=== PATIENT | male | born 1960 | race Hispanic/Latino ===

== ENCOUNTER 2022-08-28 13:30 | Emergency (ER) | payer OTHER ==
[~2022-08-28] VITALS: Ht 175.3 cm; Wt 108.9 kg
[2022-08-28 13:32] VITALS: BP 132/69
[2022-08-28] MEDS: IBUPROFEN 600 MG TABLET PO ONE (15:51)
[2022-08-28] MEDS ORDERED: IBUP-2070 PO (16:45)
[2022-08-28] MEDS ORDERED: CYCL5TAB PO (16:45)
== END 2022-08-28 16:57 | disposition home or self-care (01) ==
LOC: EDH 13:30
DX: M54.2 Cervicalgia (principal); M54.50 Low back pain, unspecified; V89.2XXA Person injured in unspecified motor-vehicle accident, traffic, initial encounter; Y93.89 Activity, other specified; Y92.89 Other specified places as the place of occurrence of the external cause; Y99.8 Other external cause status
CPT/HCPCS: 70450; 72125; 72131

== ENCOUNTER 2022-10-31 09:14 | Emergency (ER) | payer OTHER ==
[~2022-10-31] VITALS: Ht 175.3 cm; Wt 109.8 kg
[~2022-10-31 09:14] MED LIST: CYCL5TAB PO; IBUP-2070 PO
[2022-10-31] MEDS ORDERED: IBUPROFEN 600 MG TABLET PO ONE (09:30)
[2022-10-31] MEDS ORDERED: CYCL10TA16 PO (11:07)
[2022-10-31] MEDS ORDERED: IBUP-2070 PO (11:07)
[2022-10-31 11:38] VITALS: BP 114/48
== END 2022-10-31 11:38 | disposition home or self-care (01) ==
LOC: EDH 09:14
DX: M54.50 Low back pain, unspecified (principal); I10 Essential (primary) hypertension; E78.00 Pure hypercholesterolemia, unspecified; V89.2XXA Person injured in unspecified motor-vehicle accident, traffic, initial encounter; Y93.89 Activity, other specified; Y92.89 Other specified places as the place of occurrence of the external cause; Y99.8 Other external cause status
CPT/HCPCS: 72131

== ENCOUNTER → 2023-01-23 | Outpatient (CLI) | payer OTHER ==
[~2023-01-23] MED LIST changes: +CYCL10TA16 PO
== END | disposition home or self-care (01) ==
LOC: RAH 15:04
PROVIDERS: ATTEND Internal Medicine Cardiovascular Disease
DX: R01.1 Cardiac murmur, unspecified (principal)
CPT/HCPCS: 93306

== ENCOUNTER 2023-05-28 11:35 | Emergency (ER) | payer OTHER ==
[~2023-05-28] VITALS: Ht 175.3 cm; Wt 111.1 kg
[2023-05-28 11:48] VITALS: BP 139/64; PULSE 70; RESP 18
[2023-05-28] MEDS ORDERED: IBUPROFEN 800 MG TAB PO ONE (13:00)
[2023-05-28] MEDS ORDERED: IBUP-2077 PO (14:31)
[2023-05-28] MEDS ORDERED: CYCL5TAB PO (14:31)
== END 2023-05-28 14:59 | disposition home or self-care (01) ==
LOC: EDH 11:35
DX: S13.4XXA Sprain of ligaments of cervical spine, initial encounter (principal); M19.09 Primary osteoarthritis, other specified site; I10 Essential (primary) hypertension; V89.2XXA Person injured in unspecified motor-vehicle accident, traffic, initial encounter; Y93.89 Activity, other specified; Y92.89 Other specified places as the place of occurrence of the external cause; Y99.8 Other external cause status
CPT/HCPCS: 72040

== ENCOUNTER 2023-06-28 16:42 | Emergency (ER) | payer OTHER ==
[~2023-06-28] VITALS: Ht 175.3 cm; Wt 111.1 kg
[~2023-06-28 16:42] MED LIST changes: +IBUP-2077 PO
[2023-06-28 16:58] VITALS: BP 129/56; PULSE 80; RESP 16
[2023-06-28] MEDS ORDERED: KETOROLAC 30MG VIAL (30MG/ML) IM ONE (17:30)
[2023-06-28 17:41] LABS: BASOPHILS # (AUTO) 0.02 K/uL (0.00-0.20); BASOPHILS % (AUTO) 0.5 % (0.0-5.0); EOSINOPHILS # (AUTO) 0.03 K/uL (0.00-0.70); EOSINOPHILS % (AUTO) 0.7 % (0.0-8.0); IMMATURE GRANULOCYTE ABSOLUTE 0.03 K/uL (0-1); LYMPHOCYTES # (AUTO) 0.8 K/uL (1.0-4.8); LYMPHOCYTES % (AUTO) 17.8 % (21.0-51.0); MEAN CORPUSCULAR HGB CONC 31.1 g/dL (32.0-36.0); MEAN CORPUSCULAR VOLUME 77.1 fL (79-99); MONOCYTES # (AUTO) 0.9 K/uL (0.1-1.0); MONOCYTES % (AUTO) 21.5 % (3.0-13.0); NEUTROPHILS # (AUTO) 2.6 K/uL (1.8-7.7); NEUTROPHILS % (AUTO) 58.8 % (40.0-77.0); PLATELET COUNT (AUTO) 104 K/uL (130-400); RED CELL DISTRIBUTION WIDTH 17.4 % (11.0-15.5); WHITE BLOOD COUNT (AUTO) 4.4 K/uL (4.8-10.8)
[2023-06-28 17:52] LABS: CREATININE 0.9 mg/dL (0.5-1.5)
[2023-06-28 17:59] LABS: ALBUMIN 2.8 g/dL (3.5-5.0); BILIRUBIN,TOTAL 1.2 mg/dL (0.2-1.0); TOTAL PROTEIN, SERUM 6.7 g/dL (6.0-8.3)
[2023-06-28] MEDS ORDERED: KETOROLAC 30MG VIAL (30MG/ML) IVP ONE (18:00)
[2023-06-28 18:24] LABS: BAND NEUTROPHILS % (MANUAL) 20 % (0-2); EOSINOPHILS % (MANUAL) 1 % (1-6); LYMPHOCYTES % (MANUAL) 22 % (22-44); MAN.DIFF COMMENT-IMPRESSION MANUAL DIFFERENTIAL; MONOCYTES % (MANUAL) 11 % (2-9); SEGMENTED NEUTROPHILS % 46 % (40-70); TOTAL CELLS COUNTED 100; WBC MORPHOLOGY CONSISTENT W/DIFF
[2023-06-28 18:25] LABS: PLATELET MORPHOLOGY COMMENT SLIGHTLY DECREASED
[2023-06-28] MEDS ORDERED: CEPH500T PO (19:48)
[2023-06-28] MEDS ORDERED: CEFTRIAXONE 1G VIAL IVPB ONE (20:00)
== END 2023-06-28 20:07 | disposition home or self-care (01) ==
LOC: EDH 16:42
DX: M79.605 Pain in left leg (principal); M79.89 Other specified soft tissue disorders; L03.116 Cellulitis of left lower limb; I10 Essential (primary) hypertension; Z79.899 Other long term (current) drug therapy; Z98.890 Other specified postprocedural states
CPT/HCPCS: 99285; 96365; 93971; 96375; 80053; 85025; 85651; 87040 ×2; 83605; 36415; 73590; 93005; J0696; J1885

== ENCOUNTER 2024-01-05 17:04 | Emergency (ER) | payer OTHER, MEDICARE ==
[~2024-01-05] VITALS: Ht 170.2 cm; Wt 108.9 kg
[~2024-01-05 17:04] MED LIST changes: +CEPH500T PO
[2024-01-05] MEDS: ACETAMINOPHEN 500 MG TABLET PO ONE (17:34)
[2024-01-05] MEDS ORDERED: CYCL10TA16 PO (18:29)
[2024-01-05 19:09] VITALS: BP 121/54; PULSE 68; RESP 16; O2SAT 100
== END 2024-01-05 19:15 | disposition home or self-care (01) ==
LOC: EDH 17:04
DX: S16.1XXA Strain of muscle, fascia and tendon at neck level, initial encounter (principal); I10 Essential (primary) hypertension; Z79.899 Other long term (current) drug therapy; Z98.890 Other specified postprocedural states; V89.2XXA Person injured in unspecified motor-vehicle accident, traffic, initial encounter; Y93.I9 Activity, other involving external motion; Y92.488 Other paved roadways as the place of occurrence of the external cause; Y99.8 Other external cause status
CPT/HCPCS: 72125